=== PATIENT | male | born 1985 | race Caucasian/White ===

== ENCOUNTER 2017-11-23 09:25 | Emergency (ER) | payer OTHER ==
[~2017-11-23] VITALS: Ht 170.2 cm; Wt 63.5 kg
--- NOTE | ~2017-11-23 | EKG ---
[place] [address] [facility] [place] [address] ELECTROCARDIOGRAM REPORT Name: LULA ARREOLA Room #: DEP CHRISTINE Ziegler#: [id number] Admission: 11/23/17 Attend Phys: Discharge: 11/23/17 Date of : 87 Report #: [id number] THIS REPORT FOR: //name// [facility] ED Test Date: 2017-11-23 Test Time: 10:02:52 Pat Name: LULA ARREOLA Department: Room: Gender: Radio Message Router: Dave CHIRINOS : 1985 Requested By: Obdulio Cortes Order Number: [id number] MD: Fortino Guaman Measurements Intervals [place] Rate: 85 P: 72 MS: 166 QRS: 64 QRSD: 93 T: 47 QT: 337 QTc: 401 Interpretive Statements Sinus rhythm Probable left atrial enlargement ST elevation suggests acute pericarditis vs early repolarization No previous ECG available for comparison Electronically Signed On 11-23-2017 19:54:04 CDT by Fortino Guaman [email or web address] <ELECTRONICALLY SIGNED> By: Fortino Guaman MD 11/23/17 1954 1002 MD CAITY Oliva
[2017-11-23] MEDS ORDERED: INSULIN SUBQ (09:32)
[2017-11-23] MEDS ORDERED: INSULI SUBQ (09:32)
[2017-11-23 11:14] VITALS: BP 125/90
== END 2017-11-23 11:15 | disposition home or self-care (01) ==
LOC: ER 09:25
DX: R06.02 Shortness of breath (principal); R61 Generalized hyperhidrosis; E10.9 Type 1 diabetes mellitus without complications; F41.9 Anxiety disorder, unspecified; F32.9 Major depressive disorder, single episode, unspecified